=== PATIENT | female | born 1950 | race Caucasian/White ===

== ENCOUNTER 2022-04-14 08:45 | Day surgery (SDC) | payer MEDICARE, SELFPAY ==
[2022-04-14] MEDS: TETRACAINE 0.5% OPHTH 1 DROP EYE-RIGHT ×2 (09:15→09:30)
[2022-04-14] MEDS: KETOROLAC OPHTH 0.5% 1 DROP EYE-RIGHT ×2 (09:15→09:30)
[2022-04-14 09:21] VITALS: BP 132/62; PULSE 66; RESP 16; TEMP 36.6; O2SAT 99; BMI 26.6
--- NOTE | 2022-04-14 09:32 | SUR.PREOP ---
The eye drops brought by the patient (Ketorolac and Prednisolone) are examined and I have determined they are labeled by the patient's pharmacy for this patient as prescribed by the surgeon. The bottles are intact, recently obtained and appear to be correct.
[2022-04-14] MEDS: SODIUM CHLORIDE 0.9 % (FLUSH) 10 ML SYRINGE IVF (09:33)
[2022-04-14] MEDS: TETRACAINE 0.5% OPHTH 2 DROP EYE-RIGHT (10:14)
[2022-04-14] MEDS: BALANCED SALT IRRIG SOLN 15 ML EYE-RIGHT (10:19)
--- NOTE | 2022-04-14 10:25 | W.ANESCHARGE ---
Anesthesia Charges Start Date/Time Anesthesia Start Date: 04/14/22 Anesthesia Start Time: 10:11 Stop Date/Time Anesthesia Stop Date: 04/14/22 Anesthesia Stop Time: 10:48 Summary Emergency: No Extremes of Age: Over 68-CPT [id number]
[2022-04-14 10:50] VITALS: BP 130/71; PULSE 65; RESP 16; TEMP 36.4; O2SAT 99
--- NOTE | 2022-04-14 11:39 | W.ANESCHARGE ---
Anesthesia Charges Start Date/Time Anesthesia Start Date: 04/14/22 Anesthesia Start Time: 10:11 Stop Date/Time Anesthesia Stop Date: 04/14/22 Anesthesia Stop Time: 10:48 Summary Emergency: No
--- NOTE | 2022-04-14 11:39 | PM.PROC ---
Procedure Note Date Seen: 04/14/22 Will [facility] bill your pro fee for this procedure?: Yes Procedure Description: SURGEON: Aranza Salas MD PREOPERATIVE DIAGNOSIS: Nuclear sclerotic cataract, right eye. POSTOPERATIVE DIAGNOSIS: Nuclear sclerotic cataract, right eye. NAME OF OPERATION: Phacoemulsification of cataract with posterior chamber intraocular lens implantation in the right eye. ANESTHESIA: Topical. ESTIMATED BLOOD LOSS: Less than 2 cc. COMPLICATIONS: None. PATHOLOGY SPECIMEN: None. INDICATIONS: See consult note for details. The risks, benefits and alternatives of the procedure were explained to the patient, who elected to proceed and signed informed consent to do so. PROCEDURE: The patient was brought to the pre-holding area where the right eye was identified as the operative eye. I placed my initials above this eye. The patient received eye drops consisting of 0.5% tetracaine, 1% tropicamide, 10% phenylephrine, and 0.5% ketorolac. The patient was then brought to the operating room where the right eye was again identified as the operative eye. The eye was prepped with Betadine and draped in the usual sterile ophthalmic fashion. A #15 super-sharp blade was used to create a paracentesis site. 1% non-preserved intracameral lidocaine was injected into the anterior chamber. Endocoat was injected into the anterior chamber. A 2.4 mm keratome was used to create a three-plane self-sealing incision 1 mm anterior to the temporal limbus. A cystotome was used to create an anterior capsular leaflet. The Utrata forceps were used to extend this to form a continuous curvilinear capsulorrhexis. Hydrodissection was performed. The cataract was removed with phacoemulsification using the [id number] technique. The irrigation and aspiration tip was used to remove the remaining cortex. Healon was injected into the capsular bag. An CARMELITA ZCB00 intraocular lens of 17.5 diopters was injected into the capsular bag. The irrigation and aspiration tip was used to remove the remaining viscoelastic. Balanced salt solution on a cannula was used to hydrate the wound, and the wound was found to be watertight. The pupil was noted to be round. DISPOSITION: The patient was taken to the recovery room and discharged to home in stable condition. The patient was instructed to call me or go to the emergency department with any sudden change, including dramatic loss of vision, severe pain in the eye or eyebrow region, nausea, or vomiting. The patient will follow up in the clinic tomorrow morning. Surgeon: Aranza Salas MD
== END 2022-04-14 11:18 | disposition home or self-care (01) ==
PROVIDERS: PCP Family Medicine; Visit Provider Ophthalmology
PROC: (CPT 66984; principal; 2022-04-14 09:00)
DX: H25.11 Age-related nuclear cataract, right eye (principal)
CPT/HCPCS: 66984; 00142; 99100; A9270; J2250; J2405; J3010; V2632

== ENCOUNTER 2022-05-05 06:00 | Day surgery (SDC) | payer MEDICARE, SELFPAY ==
[2022-05-05] MEDS: TETRACAINE 0.5% OPHTH 1 DROP EYE-LEFT ×2 (06:18→06:23)
[2022-05-05] MEDS: KETOROLAC OPHTH 0.5% 1 DROP EYE-LEFT ×2 (06:21→06:26)
[2022-05-05 06:23] VITALS: BMI 26.6
[2022-05-05] MEDS: SODIUM CHLORIDE 0.9 % (FLUSH) 10 ML SYRINGE IVF (06:25)
[2022-05-05 06:33] VITALS: BP 138/70; PULSE 70; RESP 16; TEMP 36.6; O2SAT 99
[2022-05-05] MEDS: TETRACAINE 0.5% OPHTH 2 DROP EYE-LEFT (07:13)
[2022-05-05] MEDS: BALANCED SALT IRRIG SOLN 15 ML EYE-LEFT (07:15)
--- NOTE | 2022-05-05 07:23 | W.ANESCHARGE ---
Anesthesia Charges Start Date/Time Anesthesia Start Date: 05/05/22 Anesthesia Start Time: 07:10 Stop Date/Time Anesthesia Stop Date: 05/05/22 Anesthesia Stop Time: 07:40 Summary Emergency: No Extremes of Age: Over 68-CPT [id number]
[2022-05-05 07:40] VITALS: BP 137/73; PULSE 67; RESP 16; TEMP 36.3; O2SAT 99
--- NOTE | 2022-05-05 10:29 | PM.PROC ---
Procedure Note Date Seen: 05/05/22 Will [facility] bill your pro fee for this procedure?: Yes Procedure Description: SURGEON: Aranza Salas MD PREOPERATIVE DIAGNOSIS: Nuclear sclerotic cataract, left eye. POSTOPERATIVE DIAGNOSIS: Nuclear sclerotic cataract, left eye. NAME OF OPERATION: Phacoemulsification of cataract with posterior chamber intraocular lens implantation in the left eye. ANESTHESIA: Topical. ESTIMATED BLOOD LOSS: Less than 2 cc. COMPLICATIONS: None. PATHOLOGY SPECIMEN: None. INDICATIONS: See consult note for details. The risks, benefits and alternatives of the procedure were explained to the patient, who elected to proceed and signed informed consent to do so. PROCEDURE: The patient was brought to the pre-holding area where the left eye was identified as the operative eye. I placed my initials above this eye. The patient received eye drops consisting of 0.5% tetracaine, 1% tropicamide, 10% phenylephrine, and 0.5% ketorolac. The patient was then brought to the operating room where the left eye was again identified as the operative eye. The eye was prepped with Betadine and draped in the usual sterile ophthalmic fashion. A #15 super-sharp blade was used to create a paracentesis site. 1% non-preserved intracameral lidocaine was injected into the anterior chamber. Endocoat was injected into the anterior chamber. A 2.4 mm keratome was used to create a three-plane self-sealing incision 1 mm anterior to the temporal limbus. A cystotome was used to create an anterior capsular leaflet. The Utrata forceps were used to extend this to form a continuous curvilinear capsulorrhexis. Hydrodissection was performed. The cataract was removed with phacoemulsification using the [id number] technique. The irrigation and aspiration tip was used to remove the remaining cortex. Healon was injected into the capsular bag. An CARMELITA ZCB00 intraocular lens of 19.0 diopters was injected into the capsular bag. The irrigation and aspiration tip was used to remove the remaining viscoelastic. Balanced salt solution on a cannula was used to hydrate the wound, and the wound was found to be watertight. The pupil was noted to be round. DISPOSITION: The patient was taken to the recovery room and discharged to home in stable condition. The patient was instructed to call me or go to the emergency department with any sudden change, including dramatic loss of vision, severe pain in the eye or eyebrow region, nausea, or vomiting. The patient will follow up in the clinic tomorrow morning. Surgeon: Aranza Salas MD
== END 2022-05-05 08:05 | disposition home or self-care (01) ==
PROVIDERS: PCP Family Medicine; Visit Provider Ophthalmology
PROC: (CPT 66984; principal; 2022-05-05 06:15)
DX: H25.12 Age-related nuclear cataract, left eye (principal)
CPT/HCPCS: 66984; 00142; 99100; A9270; J2250; J2405; J3010; V2632

== ENCOUNTER 2022-12-28 07:51 | Outpatient (CLI) | payer MEDICARE, SELFPAY | END 2022-12-28 07:52 | disposition home or self-care (01) | LOC: INJ CL 07:53 | PROVIDERS: PCP Family Medicine; Visit Provider Family Medicine | DX: M54.16 Radiculopathy, lumbar region (principal); M51.36 Other intervertebral disc degeneration, lumbar region | CPT/HCPCS: 64483; 64484; J1100; Q9966 ==

== ENCOUNTER 2023-12-27 07:29 | Outpatient (CLI) | payer MEDICARE, SELFPAY ==
--- OUTSIDE RECORDS SUMMARY | 2023-12-27 07:32 | XMS_ITS ---
Author Name Unknown Organization [facility] Address [address] [place] [address] Care Team Providers Care Treating Plant Supervisor Name Role Phone Unavailable Unavailable Unavailable Surgery Details Not on file Complications Check Surgery Details section. Procedure Estimated Blood Loss Check Surgery Details section. Procedure Findings Check Surgery Details section. Procedure Specimens Taken Check Surgery Details section.
--- OUTSIDE RECORDS SUMMARY | 2023-12-27 07:32 | XMS_ITS | Clinical Summary ---
Author Name Unknown Organization [facility] Address [place], [place] [address] Care Team Providers Care Prosthetic Makeup Designer Name Role Phone Glenys James DO Primary Care Provider [phone] Allergies Active Allergy Reactions Criticality Noted Date Comments Avocado Rash 01/21/2015 Azithromycin Intolerance-Can't Take 05/23/2017 Unable to recall Pomegranate Throat Swelling/Closing 01/21/2015 Medications Medication Sig Dispensed Refills Start Date End Date Status Calcium carbonate (OYSTERSHELL CALCIUM) 500 mg tablet Take 2 tablets by mouth 2 times daily with meals. 0 11/16/2011 Active cholecalciferol (VITAMIN D) 1,000 unit tablet Take 1 tablet by mouth 2 times daily. Patient is unsure of dose 0 11/16/2011 Active omega-3 fatty acids-vitamin E (FISH OIL) 1,000 mg Cap Take 1 capsule by mouth 2 times daily. 0 11/16/2011 Active Carmen, Zingiber officinalis, 250 mg capsule Take by mouth. 0 06/05/2014 Active Black Cohosh 20 mg tablet Take 1 tablet by mouth. 0 06/05/2014 Active SUMAtriptan (IMITREX) 50 mg tabletIndications:Migr aury without status migrainosus, not intractable, unspecified migraine type TAKE 1 TABLET BY MOUTH EVERY 2 HOURS IF NEEDED FOR MIGRAINE. GIVE AT MINIMUM 2 HOURS APART. MAX DOSE: 200MG PER 24 HOURS 9 tablet 3 03/21/2019 Active Cranberry 400 mg capsule 12/25/2022 Active propranoloL (INDERAL) 10 mg tabletIndications:Elev ated blood pressure reading without diagnosis of hypertension,Migraine without status migrainosus, not intractable, unspecified migraine type Take 1 Tablet (10 mg) by mouth two times daily. 180 Tablet 3 01/11/2023 Active traMADoL (ULTRAM) 50 mg tabletIndications:Spin al stenosis, lumbar region, without neurogenic claudication,Degenerat ion of lumbar or lumbosacral intervertebral disc Take 1 Tablet (50 mg) by mouth once daily. 30 Tablet 10/03/2023 Active atorvastatin (LIPITOR) 10 mg tabletIndications:Hype rlipidemia, unspecified hyperlipidemia type Take 1 Tablet (10 mg) by mouth at bedtime. 90 Tablet 10/21/2023 Active Active Problems Problem Noted Date Diagnosed Date Estrogen receptor positive status (ER+) 09/02/20 Osteopenia 09/02/2022 Diverticular disease 09/02/2022 Calculus of gallbladder 09/02/2022 Idiopathic bronchiectasis 11/16/2021 Overview: Incidental finding on Cardiac CT Pulmonary consult 2021 - repeat CT not advised PFT's annually and pulmonary follow up Elevated blood pressure read ing without diagnosis of hypertension 08/23/2017 Osteoporosis 05/21/2016 Overview: Fosamax for about 10 years [id number] Prolia 5239-9631 stopped when she developed ONJ Started Reclast 2019 Migraine 01/21/2014 Colon cancer screening 01/03/2012 Overview: Discussed with GI - iFOBT STOOL recommended yearly because was not able to get good colonoscopy due to tortuous and long colon or BE every 5 years Osteoarth Left Knee with degen Meniscus tear Multilevel lumbar neuroforaminal stenosis 2010 Scoliosis deformity of spine 03/04/2011 Multilevel Lumbar DDD 03/04/2011 Resolved Problems Problem Noted Date Diagnosed Date Resolved Date Migraine 01/23/2015 03/31/2015 Encounters Date Type Department Care Team Description 12/24/2023 Travel 12/20/2023 Telephone [facility] [address] [place] [address] Jerry Buchanan MD Questions (Injection Request) 09/29/2023 Telephone [facility] [address] [place] [address] Glenys James, DO Medication Management (traMADoL (ULTRAM) 50 mg tablet/) from Last 3 Months Immunizations Name Administration Dates Next Due AMB Influenza, IIV4 PF (=>6 mos Flulaval,Fluzone Fluarix)(Flu Clinic Only) 08/23/2014 COVID-19 vaccine (Private Outlet NTThoughtSpot 30mcg/0.3mL) PF, MDV 09/18/2021,11/25/2020,11/04/2020 Influenza, High-dose Inactivated 05/13/2016 Influenza, High-dose Quadriv alent Inactivated 07/17/2020 Influenza, IIV4 08/23/2014 Influenza, Inactivated AIIV4 (Age 65+ Years) Preserv Free 07/17/2020 Influenza, Inactivated IIV3 (Age 65+ Years) Preserv Free 06/13/2018,08/23/2017 Pneumococcal Poly,23-Valent (Pneumovax) 01/22/20 14 Pneumococcal conj 13-Valent (Prevnar 13) 015 Tdap 01/03/2012 Zoster (Zostavax-ZVL, live) 06/04/2014 Family History Medical History Relation Name Comments Heart attack Brother Benign prostatic hyperplasia Father Cancer Father bone cancer Unknown Maternal Grandfather Unknown Maternal Grandmother Cancer Mother lymphoma Unknown Paternal Grandfather Unknown Paternal Grandmother Thyroid Disease Sister 1 Transient ischemic attack Sister 1 Hypertension Sister 2 also prediabeti c Cancer-breast No Family History Cancer-ovarian No Family History Relation Name Status Comments Brother Father (Age 78) bone cance r Maternal Grandfather Maternal Grandmother Mother (Age 36) lymphoma Paternal Grandfather Paternal Grandmother Sister 1 Sister 2 Social History Tobacco Use Types Packs/Day Years Used Date Smoking Tobacco: Never Passive Smoke Exposure: Never Smokeless Tobacco: Never Tobacco Cessation:Counseling Given: Yes Alcohol Use Standard Drinks/Week Comments Yes 0 (1 standard drink = 0.6 oz pur e alcohol) red wine once to twice a month PHQ-2 Answer Date Recorded PHQ-2 TOTAL SCORE 0 01/11/2023 Social Connections Answer Date Recorded Frequency of Communication with Friends and Fami ly Not on file 04/19/2023 Financial Resource Strain Answer Date R ecorded Difficulty of Paying Living Expenses 3 04/12/2022 Difficulty of Paying Living Expenses Not on file 04/12/2022 Food Insecurity Answer Date Recorded Worried About Running Out of Food in the Last Ye ar 1 04/12/2022 Transportation Needs Answer Date Record ed Lack of Transportation (Medical) 1 04/12/2022 Housing Stability Answer Date Recorded Unable to Pay for Housing in the Last Year 1 04/12/2022 Sex and Gender Information Value Date Recorded Sex Assigned at Female 10/20/2020 10:16 PM TELEVISION [employer]S TESTER Gender Identity Female 10/20/2020 10:16 PM TELEVISION PARTS TESTER Sexual Orientation Straight 10/20/2020 10 :16 PM TELEVISION PARTS TESTER Obstetrics History Para Term AB IAB SAB Ectopic Multiple Livin g Live Births 2 2 2 0 0 0 0 0 0 2 2 Date Outcome GA Total Labor Labor/2nd/3rd Weight Sex Delivery Anes PTL Miroslava A1 A5 Name Cl in Term Edwige ng Term Edwige ng Last Filed Vital Signs Vital Sign Reading Time Taken Comments Blood Pressure 138/84 09/08/2023 1:39 PM TELEVISION PARTS TESTER Pulse 72 09/08/2023 1:39 PM TELEVISION PARTS TESTER Temperature 36.5 ??C (97.7 ??F) 04/12/2022 10:01 AM C DT Respiratory Rate 20 09/08/2023 1:39 PM TELEVISION PARTS TESTER Oxygen Saturation 96% 09/08/2023 1:39 PM TELEVISION PARTS TESTER Inhaled Oxygen Concentration - - Weight 66.2 kg (146 lb) 09/08/2023 1:39 PM TELEVISION PARTS TESTER Height 156.2 cm (5' 1.5) 09/08/2023 1:39 PM TELEVISION PARTS TESTER Body Mass Index 27.14 09/08/2023 1:39 PM TELEVISION PARTS TESTER Plan of Treatment Upcoming Encounters Date Type Department Care Team (Late st Contact Info) Description 12/27/2023 8:00 AM CDT Office Visit [facility] [address] [facility] [place] [id number] Jerry Buchanan MD [address] [place] [address] 02/22/2024 1:40 PM CDT Office Visit [facility] [address] [place] [address] Jerry Buchanan MD [address] [place] [address] Health Maintenance Due Date Last Done Comments Zoster (shingles) series for age 50+ (2 of 3) 07/30/2014 06/04/2014 Tetanus booster 01/02/2022 01/03/2012 COVID-19 vaccine series (4 - 2022-24 season) 2023 09/18/2021, 11/25/2020, 11/04/2020 Fecal testing sDNA-FIT (Cologuard) for age 45-75 12/16/2023 12/15/2020 Depression screening for age 12+ 01/12/2024 01/11/2023, 12/30/2021, 12/05/2020, Additional history exists Medicare Wellness for age 65+ 01/12/2024, 12/30/2021, 12/03/2020, Additional history exists Influenza for age 65+ 05/06/2024 07/17/2020 , 07/17/2020, 06/13/2018, Additional history exists BMI (ht and wt on same day) for age 18+ 09/08/2024 09/08/2023, 01/11/2023, 04/12/2022, Additional history exists Lipids for age 45-75 01/12/2028 01/11/2023, 12/30/2021, 03/17/2021, Additional history exists Tdap Completed 01/03/2012 Pneumococcal series for age 65+ Completed 5, 01/21/2014 DEXA/DXA scan for age 65+ Completed 2015, 01/24/2014, 01/04/2012, Additional history exists Hepatitis C screening for ag e 18-79 Completed 10/17/2019 Fecal testing non-DNA (FIT,FOBT,iFOBT) for age 45-75 Discontinued 10/23/2019, 09/01/2018, 08/25/2017, Additional history exists Procedures Procedure Name Priority Date/Time Associated Diagnosis Comments LIPID PANEL W REFLEX MEASURED LDL Routine 01/11/2023 2:32 PM CDT Hyperlipidemia, unspecified hyperlipidemia type SCAN-FECAL TEST DNA (COLOGUARD) 12/15/2020 12:00 AM CDT OCCULT BLOOD IFOBT STOOL Routine 10/23/2019 8:00 AM TELEVISION PARTS TESTER Screening for colon cancer ANTI HCV Routine 10/17/2019 11:26 AM TELEVISION PARTS TESTER Need for hepatitis C screening test XR DXA BONE DENSITY 2 SITES AXIAL Routine 05/17/2016 11:14 AM CDT Post-menopausal from Last 3 Months or Most Recently Relevant to Health Maintenance Results * (ABNORMAL) LIPID PANEL W REFLEX MEASURED LDL (01/11/2023 2:32 PM CDT) CHOLESTEROL,TOTAL 141 mg/dL 023 4:56 AM CDT [facility] [employer] [facility] Comment: Cholesterol, Total Reference Ranges Desirable <200 mg/dL Borderline 200-239 mg/dL High >=240 mg/dL TRIGLYCERIDES 192(H) <150 mg/dL 01/12/2023 4:56 AM CDT [facility] [employer] [facility] HDL CHOLESTEROL 47 >40 mg/dL 3 4:56 AM CDT [facility] NON-HDL CHOLESTEROL 94 <145 mg/dl 01/12/2023 4:56 AM CDT [facility] TR[facility] LAB[facility] CHOL/HDL RATIO 3.00 <4.50 01/12/2023 4:56 AM CDT [facility] LDL CHOLESTEROL 56 <=130 mg/dL 01/12/2023 4:56 AM CDT [facility] [employer] TR[facility] VLDL CHOLESTEROL 38(H) <=30 mg/dL 01/12/2023 4:56 AM CDT [facility] [employer] PROVIDER ORDERED STATUS RANDOM 01/12/2023 4:56 AM CDT [facility] [employer] Blood BLOOD SPECIMEN / Unknown Venipuncture / Unknown 01/11/2023 2:32 PM CDT 01/11/2023 2:33 PM CDT Glenys Jaems DO CHEMISTRY [facility] [address] [place] [address], [place] * SCAN-FECAL TEST DNA (COLOGUARD) (12/15/2020 12:00 AM CDT) Scanner OTHER * OCCULT BLOOD IFOBT STOOL [[id number]] (10/23/2019 8:00 AM TELEVISION PARTS TESTER) STOOL BLOOD ,IFOBT Negative Negative 10/23/2019 12:05 PM TELEVISION PARTS TESTER [facility] Stool STOOL SPECIMEN / Unknown Non-Blood / Unknown 10/23/2019 8:00 AM TELEVISION PARTS TESTER 10/23/2019 11:55 AM TELEVISION PARTS TESTER Annalise Upton MD LABORATORY Performing Organization Address [facility] Co de Phone Number [facility] [address] [place] [address], * ANTI HCV (10/17/2019 11:26 AM TELEVISION PARTS TESTER) HEPATITIS C ANTIBODY Non-React sherrell Non-React sherrell 10/17/2019 6:59 PM TELEVISION PARTS TESTER [facility] Comment:Antibodies to HCV no t detected; does not exclude the possibility of exposure to HCV. Blood BLOOD SPECIMEN / Unknown Venipuncture / Unknown 10/17/2019 11:26 AM TELEVISION PARTS TESTER 10/17/2019 11:26 AM TELEVISION PARTS TESTER Annalise Upton MD SEND OUTS Performing Organization Address City/[facility]/ZIP Co de Phone Number [facility] [address] [place] [address], [place] * (ABNORMAL) XR DXA BONE DENSITY 2 SITES AXIAL (05/17/2016 11:14 AM CDT) Anatomical Region Laterality Modality Spine, HIPS, HIPL, HIPR Other Narrative 05/18/2016 3:04 PM CDT Please see scanned document for results of this study. Annalise REZA from Last 3 Months or Most Recently Relevant to Health Maintenance Care Teams Prosthetic Makeup Designer Relationship Specialty Start Date End Date Glenys James DO [address] [place] [address] PCP - General Family Practice 12/29/22
--- OUTSIDE RECORDS SUMMARY | 2023-12-27 07:32 | XMS_ITS | Referral Summary ---
Author Name Unknown Organization [facility] Address [address] [place] [address] Care Team Providers Care Nitroglycerin Neutralizer Name Role Phone Elsewhere, Pcp Primary Care Provider Unavailabl e Source Comments Patient records contain information from all sites at [facility]. For routine questions regarding patient records, call [phone] during business hours, M-F 8:00 AM - 5:00 PM Central Time. Record requests for emergency care only can be directed to [phone] at any time.[facility] Allergies Active Allergy Reactions Criticality Noted Date Comments Avocado Other (see comments) 05/17/2017 Mouth sores Azithromycin Other (see comments) 05/23/2017 Unable to recall Pomegranate Other (see comments) 05/17/2017 Anaphylaxis, throat swelling Medications Medication Sig Dispensed Refills Start Date End Date Status black cohosh 540 mg capsule Take 1 capsule by mouth 2 (two) times a day. 05/23/2017 Active cholecalciferol (VITAMIN D3) 1,000 Unit capsule Take 1 capsule by mouth every morning. 05/23/2017 Active cranberry conc-ascorbic acid 4,200-20 mg capsule Take 1 capsule by mouth every morning. 05/23/2017 Active omega 4-uyh-oml-fish oil 1,000 mg (120 mg-180 mg) capsule Take 1 capsule by mouth every morning. Taken May 23, 2017. 05/23/2017 Active flakita root (FLAKITA, ZINGIBER OFFICINALIS,) 550 mg capsule Take 1 capsule by mouth every morning. To prevent bladder infections. 05/24/2017 Active ibuprofen (ADVIL,MOTRIN) 200 mg tablet Take 2-3 tablets by mouth as needed. Last dose was Apr 20, 2017; do not take while on aspirin DVT prophylaxis. 05/26/2017 Active propranolol (INDERAL) 10 mg tablet Take 1 tablet by mouth 2 (two) times a day. Daily for migraines. 05/17/2017 Active SUMAtriptan (IMITREX) 50 mg tablet Take 1 tablet by mouth as needed. For migraines. 05/23/2017 Active traMADol (ULTRAM) 50 mg tablet Take 1-2 tablets by mouth every 6 (six) hours as needed. For pain. Do not exceed 8 tablets per day. Take 1 tab for pain 1-5 or 2 tabs for pain 6-10. 05/26/2017 Active acetaminophen (TYLENOL) 500 mg tablet Take 1-2 tablets by mouth every 4 (four) hours as needed. For pain; do not exceed more than 4000 mg/day. 05/26/2017 Active ascorbic acid, vitamin C, (VITAMIN C) 1,000 mg tablet Take 1 tablet by mouth every morning. 05/23/2017 Active atorvastatin (LIPITOR) 10 mg tablet Take 10 mg by mouth daily. 08/05/2021 Active calcium carbonate-vitamin D3 500 mg-3.125 mcg (125 unit) per tablet 04/08/2016 Calcium Carb-Cholecalcifer ol Oral 500 mg-3.125 mcg (125 unit) PO 1.0 TABLET(S) daily 04/08/2016 active 04/08/2016 Active Active Problems Problem Noted Date Diagnosed Date Osteoporosis 09/18/2018 Social History Tobacco Use Types Packs/Day Years Used Date Smoking Tobacco: Never Smokeless Tobacco: Never Alcohol Use Standard Drinks/Week Comments No 0 (1 standard drink = 0.6 oz pur e alcohol) Humiliation, Afraid, Rape, and Kick questionnair e Answer Date Recorded Within the last year, have y ou been afraid of your partner or ex-partner? No 01/14/2023 Within the last year, have y ou been humiliated or emotionally abused in other ways by your partner or ex-partner? No Within the last year, have y ou been kicked, hit, slapped, or otherwise physically hurt by your partner or ex-partner? No 01/14/2023 Within the last year, have y ou been raped or forced to have any kind of sexual activity by your partner or ex-partner? No 01/14/2023 Social Connection and Isolat ion Panel [NHANES] Answer Date Recorded In a typical week, how many times do you talk on the phone with family, friends, or neighbors? More than three times a week 01/14/2023 How often do you get togethe r with friends or relatives? Three times a week 01/14/2023 How often do you attend chur ch or mosque services? More than 4 times per year 01/14/2023 Do you belong to any clubs o r organizations such as presybeterian groups, unions, fraternal or athletic groups, or school groups? Yes 01/14/2023 How often do you attend meet ings of the clubs or organizations you belong to? More than 4 times per year 01/14/2023 Are you , , di vorced, , never , or living with a partner? 01/14/2023 AUDIT-C Answer Date Recorded Q1: How often do you have a drink containing alc ohol? Monthly or less 01/14/2023 Q2: How many drinks containi ng alcohol do you have on a typical day when you are drinking? 1 or 2 01/14/2023 Q3: How often do you have si x or more drinks on one occasion? Never 01/14/2023 Overall Financial Resource Strain (CARDIA) Answe r Date Recorded How hard is it for you to pa y for the very basics like food, housing, medical care, and heating? Not hard at all 01/14/2023 [facility]ational Stress Questionnaire Answer Date Recorded Do you feel stress - tense, restless, nervous, or anxious, or unable to sleep at night because your mind is troubled all the time - these days? Not at all 01/14/2023 Exercise Vital Sign Answer Date Recorde d On average, how many days pe r week do you engage in moderate to strenuous exercise (like a brisk walk)? 6 days 01/14/2023 On average, how many minutes do you engage in exercise at this level? 20 min 01/14/2023 Hunger Vital Sign Answer Date Recorded Within the past 12 months, y ou worried that your food would run out before you got the money to buy more. Never true 01/15/20 23 Within the past 12 months, t he food you bought just didn't last and you didn't have money to get more. Never true 01/14/2023 PRAPARE - Transportation Answer Date Re corded In the past 12 months, has l ack of transportation kept you from medical appointments or from getting medications? No 01/03 In the past 12 months, has l ack of transportation kept you from meetings, work, or from getting things needed for daily living? No 01/14/2023 Housing Stability Vital Sign Answer Quentin e Recorded In the last 12 months, was t here a time when you were not able to pay the mortgage or rent on time? No 01/14/2023 In the last 12 months, how many places have you lived? 1 01/14/2023 In the last 12 months, was t here a time when you did not have a steady place to sleep or slept in a usp (including now)? No 01/14/2023 Nutrition Answer Date Recorded Nutrition: EVOO Fat Source No 01/14 On average, how many serving s of fruits and vegetables do you eat per day (serving size is equal to 1 cup or approximately the size of a tennis ball)? 2-3 01/14/2023 Dental Answer Date Recorded Dental: Regular Dentist Yes 01/12/20 Employment Answer Date Recorded Employment status Retired 01/14/2023 Education Answer Date Recorded What is the highest level of school you have completed or the highest degree you have received? Master's degree (e.g., MA, MS, Tee, MEd, GENERAL MAINTENANCE ENGINEER, CHELLE) 01/11/2022 Sex and Gender Information Value Date Recorded Sex Assigned at Female 10/20/2018 11:25 AM CROZE CUTTER HELPER Gender Identity Female 10/20/2018 11:25 AM CROZE CUTTER HELPER Sexual Orientation Straight 10/20/2018 11 :25 AM CROZE CUTTER HELPER Last Filed Vital Signs Vital Sign Reading Time Taken Comments Blood Pressure 138/82 01/12/2022 8:38 AM CDT Pulse 65 01/12/2022 8:38 AM CDT Temperature - - Respiratory Rate 16 05/26/2017 2:43 PM CDT Value from [employer]. Oxygen Saturation - - Inhaled Oxygen Concentration - - Weight 62.6 kg (138 lb 0.1 oz) 01/12/2022 8:38 AM CDT Height 156.4 cm (5' 1.58) 01/12/2022 8 :38 AM CDT Body Mass Index 25.59 01/12/2022 8:38 AM CDT Plan of Treatment Not on file Medical Devices Implanted Type Area Sales Expert Device Identifier Shelf Expiration Date Model / Serial / Lot J J Patella Rev Round 32m - [employer] [id number] Implanted:Qty: 1 on 05/24/2017 Knee Implant Other/Legacy - See Implant Description [employer] Description:Device Manufactu rer - [employer]. Body Location - Other. Right. Device Status Text - [id number] [id number]. J J Sig Tib Poly Stab #2 8.0m - [employer] [id number] Implanted:Qty: 1 on 05/24/2017 Knee Implant Other/Legacy - See Implant Description [email or web address] Description:Device Manufactu rer - [employer]. Body Location - Other. Right. Device Status Text - [id number] [id number]. Sigma Post Stab.W Lug Fem Sz 3 Rt - [employer] [id number] Implanted:Qty: 1 on 05/24/2017 Knee Implant Other/Legacy - See Implant Description [employer] Description:Device Manufactu rer - [employer]. Body Location - Other. Right. Device Status Text - KNEE [id number]. Procedures Procedure Name Priority Date/Time Associated Diagnosis Comments EXTI BASIC METABOLIC PANEL, S/P Routine 01/11/2023 2:32 PM CDT from Last 3 Months or Most Recently Relevant to Health Maintenance Advance Directives For more information, please contact: [phone] Documents on File Type Date Recorded Patient Construction Director Expl anation Advance Directives 09/22/2016 12:00 AM Leg acy document. See document viewer. Care Teams Nitroglycerin Neutralizer Relationship Specialty Start Date End Date Elsewhere, Pcp PCP - General Internal Medicine 01/17/23
--- OUTSIDE RECORDS SUMMARY | 2023-12-27 07:32 | XMS_ITS | Clinical Summary ---
Author Name Unknown Organization [facility] Address [address] [place] [address] Care Team Providers Care News Library Director Name Role Phone Elsewhere, Pcp Primary Care Provider Unavailabl e Source Comments Patient records contain information from all sites at [facility]. For routine questions regarding patient records, call [phone] during business hours, M-F 8:00 AM - 5:00 PM Central Time. Record requests for emergency care only can be directed to [phone] at any time.[facility] Allergies Active Allergy Reactions Criticality Noted Date [...] by mouth every morning. 05/23/2017 Active omega 7-lap-njk-fish oil 1,000 mg (120 mg-180 mg) capsule [...] Problem Noted Date Diagnosed Date Osteoporosis 09/18/2018 Family History Medical History Relation Name Comments Coronary artery disease Brother Pawel Vallejo 2019 Other cancer Father Blanco Vallejo Bone- 2000 Prostate cancer Father Blanco Vallejo 1998 Lymphoma Mother Mother 196- Prostate cancer Mother Mother Hypertension Sister 1 Vane Marsh 1985 Thyroid disease Sister 1 Vane Marsh 09/06 & r emoved Transient ischemic attack Sister 1 Vane Marsh 2017 Depression Sister 2 Renita Cummingsnis Prosac -2007 Diabetes Sister 2 Renita Vallejo 2015 Relation Name Status Comments Brother Pawel Vallejo Father Blanco Vallejo Mother Mother Sister 1 Vane Marsh Sister 2 Renita Vallejo Social History Tobacco Use Types Packs/Day Years [...] week 01/14/2023 How often do you attend [facility] or anabaptist services? More than 4 times per year 01/14/2023 Do you belong to any clubs o r organizations such as druze groups, unions, fraternal or athletic groups, or [...] and heating? Not hard at all 01/14/2023 [facility] - Occupational Stress Questionnaire Answer [...] place to sleep or slept in a long-term (including now)? No 01/14/2023 Nutrition Answer Date [...] Master's degree (e.g., MA, MS, Tee, MEd, GYNECOLOGY TEACHER, CHELLE) 01/11/2022 Sex and Gender Information Value Date Recorded Sex Assigned at Female 10/20/2018 11:25 AM SETTLEMENT TECHNICIAN Gender Identity Female 10/20/2018 11:25 AM SETTLEMENT TECHNICIAN Sexual Orientation Straight 10/20/2018 11 :25 AM SETTLEMENT TECHNICIAN Last Filed Vital Signs Vital Sign Reading [...] 01/12/2022 8:38 AM CDT Plan of Treatment Health Maintenance Due Date Last Done Comments CT Colonography 1950 FIT 1950 Hepatitis C Screening 1950 Zoster Vaccines (2 of 3) 07/30/2014 06/04/2014 Mammogram 07/06/2018 07/06/2017 (Perf ormed elsewhere) Colonoscopy 09/05/2020 09/05/2010 (Perf ormed elsewhere) DTaP,Tdap,and Td Vaccines (2 - Td or Tdap) 01/02/2022 01/03/2012 COVID-19 Vaccine (4 - 2022-2 4 season) 2023 09/18/2021, 11/25/2020, 11/04/2020 Influenza Vaccine (#1) 2023 , 06/13/2018, 08/23/2017, Additional history exists Depression Screening (Annual PHQ-2) 09/05/2023 Fall Risk Screen (Annual) 09/05/2023 Cologuard 12/16/2023 12/15/2020 Colorectal Cancer Screening 12/16/2023 Fasting Glucose for Diabetes Screening 01/11/2026 01/11/2023, 12/30/2021, 12/03/2020, Additional history exists Pneumococcal vaccine (65+ years) Completed 01/24/20 15, 01/21/2014 Medical Devices Implanted Type Area Machine I Engraver Device Identifier Shelf Expiration Date Model / Serial / Lot J J Patella Rev Round 32m - [employer] [id number] Implanted:Qty: 1 on 05/24/2017 Knee Implant Other/Legacy - See Implant Description [employer] Description:Device Manufactu rer - [employer]. Body Location - Other. Right. Device Status Text - [id number] [id number]. J J Sig Tib Poly Stab #2 8.0m - [employer] [id number] Implanted:Qty: 1 on 05/24/2017 Knee Implant Other/Legacy - See Implant Description [employer] Description:Device Manufactu rer - [employer]. Body Location - Other. Right. Device Status Text - KNEE [id number]. Sigma Post Stab.W Lug Fem Sz 3 Rt - [employer] [id number] Implanted:Qty: 1 on 05/24/2017 Knee Implant Other/Legacy - See Implant Description [employer] Description:Device Manufactu rer - [employer]. Body Location - Other. Right. Device Status Text - KNEE [id number]. Procedures Procedure Name Priority Date/Time Associated Diagnosis Comments EXTI BASIC METABOLIC PANEL, S/P Routine 01/11/2023 2:32 PM CDT from Last 3 Months or Most Recently Relevant to Health Maintenance Advance Directives For more information, please contact: [phone] Documents on File Type Date Recorded Patient Family Living Educator Expl anation Advance Directives 09/22/2016 12:00 AM Leg acy document. See document viewer. Care Teams News Library Director Relationship Specialty Start Date End Date Elsewhere, Pcp PCP - General Internal Medicine 01/17/23
== END 2023-12-27 07:30 | disposition home or self-care (01) ==
PROVIDERS: PCP Family Medicine; Visit Provider Family Medicine
DX: M54.16 Radiculopathy, lumbar region (principal); M51.36 Other intervertebral disc degeneration, lumbar region
CPT/HCPCS: 64483; 64484; J1100; Q9966

== ENCOUNTER 2024-12-11 09:32 | Outpatient (CLI) | payer MEDICARE, SELFPAY | END 2024-12-11 09:33 | disposition home or self-care (01) | LOC: INJ CL 09:33 | PROVIDERS: PCP Family Medicine; Visit Provider Family Medicine | DX: M54.16 Radiculopathy, lumbar region (principal); M48.061 Spinal stenosis, lumbar region without neurogenic claudication | CPT/HCPCS: 64483; 64484; J1100; Q9966 ==